=== PATIENT | male | born 1960 | race Two or more races ===

== ENCOUNTER 2024-09-23 13:19 | Emergency (ER) | payer BC, SELFPAY ==
[2024-09-23] VITALS (24 sets, daily range): BP systolic 171–207; BP diastolic 90–110; PULSE 97–110; RESP 13–22; TEMP 36.5–37.1; O2SAT 95–99
--- NOTE | 2024-09-23 13:15 | RT.EKG_ITS ---
APPROVED REPORT Exam: Resting ECG Reason for Exam: Bee Sting Patient Location: E HR:105 bpm ECG Measurements Heart Rate 105 AXIS AK 176 P 50 QRSd 114 QRS -9 QT 366 T 35 QTc 486 Conclusion Sinus tachycardia...rate> 99 No Occlusion MA
[2024-09-23] MEDS: Famotidine 20 MG/2 ML VIAL 40 MG IVP (13:28)
[2024-09-23] MEDS: Aspirin 81 MG CHEW 324 MG CH (13:28)
[2024-09-23] MEDS: Normal Saline 1,000 ML 1000 ML IV (13:28)
--- NOTE | 2024-09-23 13:36 | ED.GENADUL_ITS ---
Discharge Plan Disposition Patient Disposition: Home Discharge Details Clinical Impression: Systemic reaction to hymenoptera sting Primary Care Provider: Tish,Local ED Provider: Jay Maria Home Meds and New Rx's Prescriptions: New epinephrine [EpiPen] 0.3 mg/0.3 mL auto-injector 0.3 mg IM Q5-15M PRNQty: 2 0RF Rx Instructions: do not exceed 3 doses per episode Discharge Instructions Additional Instructions: You were seen in the emergency department for your throat tightness following your wasp sting. Please take this prescription for epinephrine and use it if you get stung by another insect at nose any tightness in your throat. If you use this EpiPen please call 911 and come to the emergency department. As we discussed your blood pressure was elevated in the emergency department. Please follow-up with primary care provider when you are back home. HPI General Date/Time Provider Initiated Documentation: 09/23/24 13:36 . HPI Narrative: MDM This is an overall well-appearing hypertensive and mildly tachycardic 64-year-ol d male with prehospital anaphylaxis secondary to hymenoptera sting for which patient will receive monitoring in the emergency department following aspirin and famotidine. No pain out of proportion to suggest necrotizing soft tissue infection. Given right-sided chest pain an ECG was obtained. No signs of occlusion MA. No prior for comparison. Suspect pain is likely secondary to epinephrine. No tearing quality to suggest aortic dissection. No preceding fevers or cough to suggest pneumonia. No rash to chest to suggest zoster. Not hypotensive nor dialysis patient make my suspicion low for tamponade. Equal breath sounds and no trauma to chest so doubt pneumothorax. Patient has not been vomiting to suggest increased risk for esophageal rupture. Patient received prehospital methylprednisolone so no indication for additional steroids. 4:12 PM Patient with no recurrent symptoms in the ED over 3-hour observation period. His heart rate was mildly elevated though he had had normal heart rates. He received a total of 1 L of IV fluids. He had 2 negative troponins. His chest pain resolved. I feel that his chest pain is most likely the result of his epinephrine rather than ACS. He does not elevated blood pressure. He reports that he takes lisinopril in the morning. He follows with a primary care provider in [place]. I will prescribe him an epinephrine pen. Discharge heart rate 99 bpm. On multiple reassessments patient had no worsening rash. No wheezes. No oropharynx swelling. HPI This is a male with no significant past medical history presenting with symptoms following a wasp sting. The patient was stung three times in the left ear by a wasp, which resulted in a rash and a sensation of throat constriction. He also experienced right-sided chest pain, which he describes as similar to the need to burp. This pain started a few minutes after the sting. His initial blood pressure reading was 140/70. Upon arrival, he was found outside, walking with difficulty and sweating profusely. He had an erythematous rash across his torso. His lungs were clear, but he reported pain in his right chest when breathing. He reports no previous history of similar symptoms. His breathing has improved slightly, and he no longer feels the need to burp. He also reports that his excessive sweating has stopped. He is not diabetic and reports no stomach issues. History provided by EMS. The patient received 0.3 mg of epinephrine in the left deltoid, 50 mg of Benadryl, and 125 mg of Solu-Medrol. His initial symptoms included a rash and a feeling of throat constriction. Exam General: Well-appearing in no acute distress speaking in complete sentences. Head: Normocephalic, atraumatic. Eye: Extraocular eye movements intact. No conjunctival injection. No scleral icterus. Ear, nose, mouth, throat: Grossly normal inspection. Normal voice, handling secretions normally. No significant posterior oropharynx swelling nor edema. Neck: Trachea midline. Cardiovascular: Well-perfused distal extremities. Rapid regular rate Respiratory: Nonlabored respiration. Clear lungs. No wheezes. Gastrointestinal: Nondistended abdomen. Soft nontender Musculoskeletal: No edema. Moving all 4 extremities spontaneously. Skin: Mildly erythematous rash to chest. Neurologic: Alert and appropriate, no apparent acute deficits. Psychiatric: Mood and manner are appropriate. Grooming and personal hygiene are appropriate. Related Data Home Medications ?Medication ?Instructions ?Recorded ?Confirmed epinephrine 0.3 mg/0.3 mL 0.3 mg (0.3 mL) IM Q5-15M AK N #2 ea 09/23/24 injection, auto-injector (EpiPen) Previous Rx's ?Medication ?Instructions ?Recorded epinephrine 0.3 mg/0.3 mL 0.3 mg (0.3 mL) IM Q5-15M AK N #2 ea 09/23/24 injection, auto-injector (EpiPen) Allergies Allergy/AdvReac Type Severity Reaction Status Date / Time No Known Allergies Allergy Unverified 09/23/24 13:22 General Stated Complaint: InsectBite EMI: 2 Course Vital Signs Vital signs: Vital Signs Pulse 110 H 09/23/24 13:17 Respiratory Rate 18 09/23/24 13:17 Blood Pressure 207/109 H 09/23/24 13:17 Pulse Oximetry 96 09/23/24 13:17 Pulse 110 H 09/23/24 13:17 Respiratory Rate 18 09/23/24 13:17 Blood Pressure 207/109 H 09/23/24 13:17 Pulse Oximetry 96 09/23/24 13:17 PFSH All Active Problems (Updated 09/23/24 @ 13:41 by Jay Maria MD) Systemic reaction to hymenoptera sting (Acute) Social History Smoking risk assessment performed?: No
[2024-09-23 14:05] LABS: Abs Immature Grans 0.03 10^3/uL (0.0-0.06); HCT 38.1 % (40.0-50.0); HGB 12.9 g/dL (13.5-17.5); Immature Grans % 0.3 %; MCH 29.3 pg (27.0-33.0); MCHC 33.9 % (32.0-36.0); MCV 87 fL (80-95); MPV 10.1 fL (8.0-11.0); Platelet Count 238 10^3/uL (130-400); RBC 4.40 10^6/uL (4.36-5.78); RDW 12.6 % (11.8-14.1); RDW-SD 39.5 fL; WBC 9.38 10^3/uL (4.4-10.8)
[2024-09-23 14:18] LABS: Anion Gap 11.1 mmol/L (3-11); BUN 30 mg/dL (7-18); CO2 27.9 mmol/L (21.0-32.0); Calcium 9.1 mg/dL (8.5-10.1); Chloride 103 mmol/L (98-107); Estimated GFR 47.82 (mL/min/1.73m2); Glucose 244 mg/dL (74-106); Potassium 3.4 mmol/L (3.5-5.1); Sodium 142 mmol/L (136-145); Troponin I 5 ng/L (<or=76)
--- NOTE | 2024-09-23 14:42 | DI.RAD_ITS ---
Exam(s) XR PORTABLE CHEST AP EXAM: XR PORTABLE CHEST AP CLINICAL HISTORY: Chest pain TECHNIQUE: 2D digital imaging was performed. Portable semi-erect COMPARISON: No exams were available for comparison FINDINGS: LUNGS: Clear. No pleural abnormality seen. HEART: Normal size. AORTA: Normal mildly tortuous. BONES: Unremarkable prominent endplate osteophytes in the thoracic spine. Soft tissues: Unremarkable. IMPRESSION: No acute findings. DATA REPOSITORY: RADIATION DOSE DELIVERED:
[2024-09-23 15:43] LABS: Troponin I 7 ng/L (<or=76)
== END 2024-09-23 16:13 | disposition home or self-care (01) ==
PROVIDERS: Emergency Provider Emergency Medicine
DX: T63.461A Toxic effect of venom of wasps, accidental (unintentional), initial encounter (principal); T78.2XXA Anaphylactic shock, unspecified, initial encounter; Y92.89 Other specified places as the place of occurrence of the external cause
CPT/HCPCS: 80048; 93005; 96361; 96374; 99284; 71045; 84484; 85025; 93010